=== PATIENT | male | born 1990 | race Caucasian/White ===

== ENCOUNTER 2016-11-09 02:50 | Inpatient (IN) | payer BC ==
[~2016-11-09] VITALS: Ht 180.3 cm; Wt 78.5 kg
--- NOTE | 2016-11-09 03:29 | EMERGENCY ROOM VISIT NOTE ---
History Report prepared by Rashaun: Sawyer Gtz Under the Supervision of: Dr. Janell Montez D.O. First contact with patient: 02:53 Chief Complaint: PALPITATIONS Stated Complaint: PALPITATIONS History of Present Illness The patient is a 25 year old male who presents to the Emergency Room with complaints of resolved palpitations that occurred earlier this morning. The patient described the feeling as a "flutter." He was also tachycardic and experienced heavy breathing. The patient denies chest pain, shortness of breath , leg pain or swelling. He also denies any fevers, cough, or other symptoms. The patient became anxious when he noticed the palpitations, and the anxiety exacerbated the sensation. The whole episode lasted about 15-20 minutes. The patient's symptoms completely resolved in the ambulance en route. The palpitations lasted approximately 15-20 minutes. The patient is tired but otherwise feels fine currently. The patient was preparing to get ready for a flight to [place] . He has flown before but does not like it. He felt normal when he went to bed before the onset of his palpitations. The patient has had this sensation in the past. He had an episode that resolved in 30 seconds in November. He also experienced the sensation approximately 6 years ago when he was running cross country. He had a halter monitor placed at that time and was diagnosed with pericarditis. He had chest pain with his pericarditis but has not had chest pain tonight. 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 He also had caffeine at approximately 1300. Source of History: patient Onset: earlier this morning Position: other (heart) Quality: other (palpitations) Timing: resolved Modifying Factors (Worsening): other (anxiety) Associated Symptoms: No SOB, No chest pain, No cough, No fevers Review of Systems See HPI for pertinent positives & negatives. A total of 10 systems reviewed and were otherwise negative. Past Medical & Surgical Medical Problems: (1) Pericarditis (2) Rhabdomyolysis (3) SOB (shortness of breath) Family History No pertinent family history Social History Alcohol Use: occasionally Housing Status: lives alone Occupation Status: employed Current/Historical Medications No Active Prescriptions or Reported Meds Allergies Coded Allergies: No Known Allergies (Unverified , 11/09/16) Physical Exam Vital Signs Date Time Temp Pulse Resp B/P Pulse Ox O2 Delivery O2 Flow Rate FiO2 11/09/16 04:37 115 18 137/92 97 Room Air 11/09/16 03:02 110 11/09/16 02:59 36.6 113 16 139/83 97 Room Air 11/09/16 02:59 97 Room Air 11/09/16 02:59 97 Room Air Physical Exam HEENT: Head - normocephalic and atraumatic Pupils are equal, round, and reactive to light. Extraocular eye muscles are intact, and sclera are anicteric. Nose - moist nasal mucosa without discharge. Mouth - moist buccal mucosa. Oropharynx is nonerythematous and there is no tonsillar exudate or edema noted. Neck: Supple; no JVD, nuchal rigidity, cervical lymphadenopathy, or auscultated bruits. Heart: Tachycardic, regular rhythm. There is a normal S1 and S2 with no murmurs , clicks, or gallops appreciated. Lungs: Clear to auscultation bilaterally with no wheezes, rales, or rhonchi. Abdomen: Soft, completely nontender, nondistended, with good bowel sounds. There are no palpable pulsatile masses or hepatosplenomegaly. There is no guarding, rigidity, or rebound noted. Extremities: No evidence of cyanosis, clubbing, or edema. There are easily palpable peripheral pulses. Skin: warm and dry with good turgor and no rashes. Medical Decision & Procedures ER Provider Diagnostic Interpretation: X-ray results as stated below per interpretation by me. CHEST X-RAY: No cardiomegaly. No pulmonary infiltrates. No pneumothorax. Laboratory Results Test 11/09/16 03:10 RDW Standard Deviation 36.3 fL (36.4-46.3) RDW Coefficient of Variation 12.1 % (11.5-14.5) Mean Platelet Volume 9.9 fL (7.4-10.4) Activated Partial Thromboplast Time 24.5 SECONDS (21.0-31.0) Partial Thromboplastin Ratio 0.9 D-Dimer < 190 ug/L FEU (0-500) Direct Bilirubin 0.2 mg/dl (0-0.2) Creatine Kinase MB 22.0 ng/ml (0.5-3.6) Creatine Kinase MB Ratio (0-3.0) Thyroid Stimulating Hormone (TSH) 3.670 uIu/ml (0.300-4.500) Laboratory results per my review. Medications Administered Medications (Trade) Dose Ordered Sig/Viviana Route Start Time Stop Time Status Last Admin Dose Admin Aspirin 324 mg 324 mg NOW STAT PO 11/09/16 04:43 11/09/16 04:44 DC 11/09/16 04:51 324 MG Lactated Ringer's (Lr 1000ml) 1,000 ml @ 500 mls/hr Q2H STAT IV 11/09/16 04:43 11/09/16 06:42 DC 11/09/16 05:06 500 MLS/HR ECG Indication: palpitations Rate (beats per minute): 113 Rhythm: sinus tachycardia Findings: no acute ischemic change, no ectopy Comparison ECG Date: no prior available ED Course 0310: Past medical records reviewed. The patient was evaluated in room A3. A complete history and physical exam was performed. He twelve-lead EKG was obtained. An IV lock was initiated and labs were drawn as above. 0430: Discussed the findings with the patient. 0435: Discussed the case with Dr. Morgan, [facility] Hospitalist. The patient will be evaluated. 0545: During hospitalist evaluation, the patient said he has had diffuse muscle pain after starting a new work regimen. A total CK was ordered at that time and revealed a CPK greater than 100,000. Medical Decision The patient is a 25 year old male who presents to the ED with palpitations. Differential diagnosis includes dysrhythmia, hyperthyroidism, pericarditis, anxiety. Laboratory interpretation: Troponin 0.05, normal creatinine, glucose 111, normal TSH, normal white count, stable H&H This is a 25-year-old male patient presents to the emergency department with a sudden onset of palpitations. The patient thought this may be secondary to anxiety but the symptoms persisted. His had a previous episode of pericarditis that was related to a viral illness. At that time, he had significant chest pain. The patient has no pain at this time. EKG was unremarkable. The patient has an elevated troponin. After further evaluation by the hospitalist, the patient described significant physical activity with diffuse body aches. It seems that his total CPK was greater than 100,000. The patient will be treated with IV saline solution for rhabdomyolysis. This may explain why the patient's troponin was elevated. I discussed the case at length with the [facility] Hospitalist and they will evaluate for further management. Consults Time Called: 429 Consulting Physician: Dr. Morgan [facility] Returned Call: [phone]: [facility] The patient will be evaluated. Impression Primary Impression: Palpitations Additional Impressions: Rhabdomyolysis, Elevated troponin Scribe Attestation The scribe's documentation has been prepared under my direction and personally reviewed by me in its entirety. I confirm that the note above accurately reflects all work, treatment, procedures, and medical decision making performed by me. Departure Information Dispostion Being Evaluated By Hospitalist Prescriptions No Active Prescriptions or Reported Meds Referrals No Doctor, Assigned (PCP) Patient Instructions A Signature Page, My [facility]
[2016-11-09 03:47] LABS: HEMATOCRIT 42.1 % (42-52); MEAN CORPUSCULAR HEMOGLOBIN 29.8 pg (25-34); MEAN CORPUSCULAR HGB CONC 35.9 g/dl (32-36); MEAN PLATELET VOLUME 9.9 fL (7.4-10.4); PLATELET COUNT 205 K/uL (130-400); RED BLOOD COUNT 5.07 M/uL (4.7-6.1); WHITE BLOOD COUNT 6.99 K/uL (4.8-10.8)
[2016-11-09 03:54] LABS: ALT/SGPT 282 U/L (12-78); BLOOD UREA NITROGEN 10 mg/dl (7-18); BUN/CREATININE RATIO 12.1 (10-20); CALCIUM 8.6 mg/dl (8.5-10.1); CARBON DIOXIDE 29 mmol/L (21-32); CHLORIDE 105 mmol/L (98-107); CREATININE 0.85 mg/dl (0.60-1.40); GLUCOSE 111 mg/dl (70-99); POTASSIUM 3.6 mmol/L (3.5-5.1); SODIUM 144 mmol/L (136-145)
[2016-11-09 04:25] LABS: ALKALINE PHOSPHATASE 40 U/L (45-117); AST/SGOT 1182 U/L (15-37)
[2016-11-09] MEDS ORDERED: LACTATED RINGER'S 1000ML 1,000 ML IV STA (04:43)
[2016-11-09] MEDS ORDERED: ASPIRIN 81 MG CHEW PO STA (04:43)
[2016-11-09 05:08] LABS: PARTIAL THROMBOPLASTIN RATIO 0.9
[2016-11-09 05:30] VITALS: Ht 180.3 cm; Wt 78.5 kg
[2016-11-09] MEDS ORDERED: KETOROLAC TROMETHAMINE 30 MG/ML VIAL IV PRN (05:45)
[2016-11-09] MEDS ORDERED: NITROGLYCERIN 0.4 MG SL PER TAB CHARGE SL PRN (05:45)
[2016-11-09] MEDS ORDERED: MoRPHine SULFATE 4 MG/ML 1 ML CARP\\VIAL IV PRN (05:45)
[2016-11-09] MEDS ORDERED: TRAMADOL HCL 50 MG TAB PO PRN (05:45)
[2016-11-09] MEDS ORDERED: ONDANSETRON INJ 2 MG/ML 2 ML VIAL IV PRN (05:45)
[2016-11-09] MEDS ORDERED: IBUPROFEN 200 MG TAB PO PRN (05:45)
[2016-11-09] MEDS ORDERED: LORAZEPAM 2 MG/ML 1 ML VIAL IV PRN (05:45)
[2016-11-09] MEDS ORDERED: ACETAMINOPHEN 325 MG TAB PO PRN (05:45)
[2016-11-09] MEDS ORDERED: hydrOXYzine HCL 10 MG TAB PO PRN (05:45)
[2016-11-09] MEDS ORDERED: LACTATED RINGER'S 1000ML 1,000 ML IV SCH ×2 (05:45→08:00)
[2016-11-09] MEDS ORDERED: IV FLUIDS COMPLETED PRN (06:15)
--- NOTE | 2016-11-09 06:16 | HISTORY & PHYSICAL EXAMINATION ---
DATE OF ADMISSION: 11/09/2016 PRIMARY CARE PHYSICIAN: None. CHIEF COMPLAINT: Palpitations. Hx obtained from px and records. HISTORY OF PRESENT ILLNESS: Medical history significant for pericarditis, occ tobacco abuse. Four years ago, patient confined at [facility] for left-sided chest pain worse when lying on his L side with palpitations. Diagnosis was pericarditis. Possibly secondary to cross track training as per px. This week patient decided to go back to working out. He thinks his routine more stressful than he could handle, sore all over, unable to get up from bed. Taking OTC ibuprofen. Patient was in bed early this morning reading about flight disasters (as he was about to travel to the [facility] next week) when he developed palpitations. "fluttering sensation" He felt it was a little hard to breathe. px attributed sx to anxiety. Denies chest pain, Admits to alcohol intake last night, nothing more than usual. Usual 2 coffee beverages a day. Patient brought to the Emergency Room. Noted to be in sinus tachycardia. MEDICAL HISTORY: As above. SURGERIES: None. HOME MEDICATIONS: OTC Ibuprofen ALLERGIES: No known drug allergies. FAMILY HISTORY: Hypertension. PERSONAL AND SOCIAL HISTORY: "social smoking" , occasional alcoholic beverage intake (3 times a week) Software work. REVIEW OF SYSTEMS: As per HPI. All other ROS negative. PHYSICAL EXAMINATION: VITAL SIGNS: Blood pressure was noted to be 139/93, pulse rate 115 RR 20 T 37 O2 97 on room air. GENERAL: Noted to be slightly anxious, no respiratory distress. SKIN: Normal color. HEENT: [place] palpebral conjunctivae. Dry mucosa. NECK: No JVD. Supple. CHEST: Clear to auscultation. HEART: Tachycardic. ABDOMEN: Soft. EXTREMITIES: No edema. No tenderness. NEUROLOGIC: No gross focality. LABS: Hemoglobin was noted to be 15.1, hematocrit 42, white count 6.99, platelets 205. Sodium 140, potassium 3.6, chloride 105, CO2 of 29, BUN 10, creatinine 0.8, glucose 111. AST 182, ALT 282. CK was greater than 100,000 and troponin was 0.05. D-Dimer was normal. EKG sinus tachycardia. ASSESSMENT: 1. Sinus tachycardia multifactorial : muscle pain 2 to rhabdomyolysis secondary to intense workout routine mild clinical dehydration anxiety ? alcohol consumption 2. troponinemia 2 to tachycardia, rhabdo 3. history of pericarditis as per px 4. occ tobacco abuse PLAN: PCU IV fluids. baseline CPK Follow CPK. Follow troponin. 2-D echo RE troponinemia, palpitations anxiolytic prn px counselled to avoid smoking DVT prophylaxis, SCDs. Full code. MTDD
[2016-11-09] MEDS ORDERED: SODIUM CHLORIDE 0.9% 1000ML 1,000 ML IV ONE (07:00)
[2016-11-09 07:07] LABS: URINE APPEARANCE CLEAR (CLEAR); URINE BILIRUBIN NEG (NEG); URINE COLOR YELLOW; URINE NITRITE NEG (NEG); URINE PH 7.5 (4.5-7.5); URINE SPECIFIC GRAVITY 1.003 (1.000-1.030); UROBILINOGEN NEG (NEG); ZZUR CULT IF INDIC CLEAN CATCH NO
[2016-11-09 07:13] LABS: MANUAL MICROSCOPIC REQUIRED? NO; REVIEW REQ? NO
[2016-11-09 07:48] LABS: BENZODIAZEPINE, URINE NEG (NEG); COCAINE,URINE NEG (NEG); PHENCYCLIDINE, URINE NEG (NEG)
--- NOTE | 2016-11-09 08:16 | DIAGNOSTIC IMAGING REPORT ---
CHEST 2 VIEWS ROUTINE CLINICAL HISTORY: palpitations TACHYCARDIA COMPARISON STUDY: No previous studies for comparison. FINDINGS: The cardiac and mediastinal contours are normal. There is no evidence of focal pulmonary consolidation. There is no evidence of failure. No pleural effusions are visualized.[ IMPRESSION: No active disease in the chest. Electronically signed by: Jensen Valdes M.D. 11/09/2016 8:14 AM
[2016-11-09 08:38] LABS: VEN BLD GAS O2 SATURATION 80.7 %; VEN BLOOD GAS BASE EXCESS 2.3 mmol/L
[2016-11-09 09:01] LABS: BLOOD UREA NITROGEN 12 mg/dl (7-18); CALCIUM 8.2 mg/dl (8.5-10.1); CARBON DIOXIDE 27 mmol/L (21-32); CHLORIDE 109 mmol/L (98-107); CREATININE 0.73 mg/dl (0.60-1.40); GLUCOSE 86 mg/dl (70-99); POTASSIUM 4.3 mmol/L (3.5-5.1); SODIUM 145 mmol/L (136-145)
[2016-11-09 09:32] LABS: PHOSPHORUS 4.9 mg/dl (2.5-4.9)
[2016-11-09 11:00] VITALS: BP 122/72; PULSE 78; TEMP 37; O2SAT 99
[2016-11-09] MEDS: SODIUM CHLORIDE 0.9% 1000ML 1,000 ML IV SCH ×7 (11:48→22:15)
[2016-11-09 12:00] VITALS: O2SAT 99
--- NOTE | 2016-11-09 12:21 | ECHOCARDIOGRAM REPORT ---
*NOTICE TO RECEIVING CONSTITUTION PARTY AGENCY This information is strictly Confidential and protected under [place] law. [place] law prohibits you from making any further disclosure of this information unless further disclosure is expressly permitted by the written consent of the person to whom it pertains or is authorized by law. A general authorization for the release of medical or other information is not sufficient for this purpose. Hospital accepts no responsibility if the information is made available to any other person, INCLUDING THE PATIENT. Interpretation Summary * Name: STEFANIE NGUYEN Study Date: 11/09/2016 11:06 AM BP: 127/87 mmHg * Patient Location: [facility]\S\N289\S\2 HR: 85 * : 1990 (M/d/yyyy) Gender: Male Height: 71 in * Age: 25 yrs Ethnicity: CA Weight: 160 lb * Ordering Physician: Tad Mrogan * Referring Physician: Self, Referred * Performed By: Tad Vo RDCS * * Reason For Study: Palpitations * BSA: 1.9 m2 * -- Conclusions -- * Normal LV chamber size and wall thickness. * Normal LV systolic function, EF 60-65%. * No segmental left ventricular wall motion abnormalities are noted. * Normal diastolic function. * No significant valvular pathology. Procedure Details * A complete two-dimensional transthoracic echocardiogram was performed (2D, M-mode, Doppler and color flow Doppler). * The study was technically adequate. Left Ventricle * The left ventricle is normal in size. * There is normal left ventricular wall thickness. * Left ventricular systolic function is normal. * No segmental left ventricular wall motion abnormalities are noted. * Ejection Fraction = 60-65%. * The left ventricular wall motion is normal. Right Ventricle * The right ventricular cavity size is normal (basal dimension <4.2 cm in right ventricular apical 4-chamber view). * The right ventricular systolic function is normal as assessed by tricuspid annular plane systolic excursion (TAPSE) (normal >1.5 cm). Atria * The left atrial size is normal. * Right atrial size is normal. * No ASD detected; PFO is not assessed. Mitral Valve * The mitral valve is normal in structure and function. Tricuspid Valve * The tricuspid valve is normal in structure and function. Aortic Valve * The aortic valve is normal in structure and function. Pulmonic Valve * The pulmonary valve is not well seen, but the Doppler examination is normal without significant regurgitation or stenosis. Great Vessels * The aortic root is normal size. Pericardium/Pleural * There is no pericardial effusion. Left Ventricular Diastolic Function * Pulse wave TDI of the anterior and posterior mitral annulas demonstrates normal LV relaxation MMode 2D Measurements and Calculations IVSd 1.1 cm IVSs 1.5 cm LVIDd 4.7 cm LVIDs 3.1 cm LVPWd 0.99 cm LVPWs 1.4 cm IVS/LVPW 1.1 FS 34.4 % EDV(Teich) 102.7 ml ESV(Teich) 37.6 ml EF(Teich) 63.4 % EDV(cubed) 104.2 ml ESV(cubed) 29.4 ml EF(cubed) 71.8 % % IVS thick 41.2 % % LVPW thick 45.8 % LV mass(C)d 171.9 grams LV mass(C)dI 89.6 grams/m\S\2 LV mass(C)s 160.0 grams LV mass(C)sI 83.4 grams/m\S\2 SV(Teich) 65.1 ml SI(Teich) 34.0 ml/m\S\2 SV(cubed) 74.8 ml SI(cubed) 39.0 ml/m\S\2 EPSS 0.56 cm Ao root diam 3.1 cm Ao root area 7.6 cm\S\2 ACS 1.8 cm LA dimension 2.9 cm asc Aorta Diam 2.6 cm LA/Ao 0.93 LVAd ap4 26.6 cm\S\2 LVLd ap4 8.3 cm EDV(MOD-sp4) 71.0 ml LVAs ap4 15.1 cm\S\2 LVLs ap4 6.8 cm ESV(MOD-sp4) 28.0 ml EF(MOD-sp4) 60.6 % LVAd ap2 29.3 cm\S\2 LVLd ap2 8.9 cm EDV(MOD-sp2) 83.0 ml LVAs ap2 15.7 cm\S\2 LVLs ap2 7.3 cm ESV(MOD-sp2) 29.0 ml EF(MOD-sp2) 65.1 % SV(MOD-sp4) 43.0 ml SI(MOD-sp4) 22.4 ml/m\S\2 SV(MOD-sp2) 54.0 ml SI(MOD-sp2) 28.2 ml/m\S\2 Doppler Measurements and Calculations MV E max angie 83.9 cm/sec MV A max angie 40.0 cm/sec MV E/A 2.1 MV dec time 0.18 sec Ao V2 max 114.0 cm/sec Ao max PG 5.2 mmHg Ao max PG (full) 0.74 mmHg LV V1 max PG 4.5 mmHg LV V1 max 105.6 cm/sec PA V2 max 88.6 cm/sec PA max PG 3.1 mmHg PI end-d angie 107.7 cm/sec TR max angie 215.7 cm/sec
[2016-11-09 14:01] VITALS: BP 131/97; PULSE 82; TEMP 36.7; O2SAT 97
[2016-11-09 15:15] VITALS: BP 122/70; PULSE 78; TEMP 36.9; O2SAT 97
[2016-11-09 19:19] VITALS: BP 120/70; PULSE 77; TEMP 36.6; O2SAT 98
[2016-11-09 19:54] LABS: BUN/CREATININE RATIO 10.1 (10-20); CALCIUM 7.6 mg/dl (8.5-10.1); CREATININE 0.78 mg/dl (0.60-1.40); POTASSIUM 3.8 mmol/L (3.5-5.1)
[2016-11-09 20:22] LABS: PHOSPHORUS 3.1 mg/dl (2.5-4.9)
[2016-11-09 23:30] VITALS: BP 114/65; PULSE 76; TEMP 36.1; O2SAT 97
[2016-11-10] VITALS (9 sets, daily range): BP systolic 100–131; BP diastolic 63–82; PULSE 69–84; TEMP 36.3–36.8; O2SAT 96–98
[2016-11-10] MEDS: SODIUM CHLORIDE 0.9% 1000ML 1,000 ML IV SCH ×8 (00:15→14:12)
[2016-11-10 07:40] LABS: BASO % 0.2 %; BASO ABS # 0.01 K/uL (0-0.2); COMPLETE YES; EOS % 4.6 %; HEMATOCRIT 34.9 % (42-52); IG% 0.2 %; LYMPH % 44.7 %; LYMPH ABS # 2.23 K/uL (1.2-3.4); MEAN CELL VOLUME 84.7 fL (80-100); MEAN CORPUSCULAR HEMOGLOBIN 29.4 pg (25-34); MEAN CORPUSCULAR HGB CONC 34.7 g/dl (32-36); MEAN PLATELET VOLUME 10.2 fL (7.4-10.4); MONO % 7.8 %; NEUT % 42.5 %; PLATELET COUNT 150 K/uL (130-400); RED BLOOD COUNT 4.12 M/uL (4.7-6.1); WHITE BLOOD COUNT 4.99 K/uL (4.8-10.8)
[2016-11-10 08:02] LABS: ALT/SGPT 206 U/L (12-78); BLOOD UREA NITROGEN 8 mg/dl (7-18); BUN/CREATININE RATIO 13.6 (10-20); CALCIUM 7.6 mg/dl (8.5-10.1); CARBON DIOXIDE 27 mmol/L (21-32); CHLORIDE 112 mmol/L (98-107); CREATININE 0.59 mg/dl (0.60-1.40); GLUCOSE 91 mg/dl (70-99); MAGNESIUM 1.7 mg/dl (1.8-2.4); POTASSIUM 4.3 mmol/L (3.5-5.1); SODIUM 145 mmol/L (136-145); URIC ACID 3.5 mg/dl (2.6-7.2)
[2016-11-10 09:01] LABS: ALB/GLOB RATIO 1.6 (0.9-2); ALKALINE PHOSPHATASE 25 U/L (45-117); AST/SGOT 640 U/L (15-37); PHOSPHORUS 3.6 mg/dl (2.5-4.9)
[2016-11-10] MEDS: SODIUM CHLORIDE 0.9% IV SCH ×2 (16:42→20:29)
[2016-11-10] MEDS: MAG SULFATE IV SCH ×2 (16:42→20:29)
[2016-11-10 20:31] LABS: BUN/CREATININE RATIO 10.5 (10-20); CALCIUM 8.3 mg/dl (8.5-10.1); CREATININE 0.81 mg/dl (0.60-1.40); MAGNESIUM 2.1 mg/dl (1.8-2.4)
--- NOTE | 2016-11-10 20:51 | Progress Note ---
Medicine Progress Note Date & Time of Visit: Nov 10, 2016 at 15:30 . Subjective Myalgias improved. Good diuresis with clear urine. . Objective Last 8 Hrs Date Time Temp Pulse Resp B/P Pulse Ox O2 Delivery O2 Flow Rate FiO2 11/10/16 20:00 98 Room Air 11/10/16 19:06 36.8 75 18 130/82 98 Room Air 11/10/16 16:00 97 Room Air 11/10/16 15:14 36.8 84 18 129/77 97 Room Air Physical Exam: General- no distress Lungs- clear Heart- regular Abdomen- soft, nontender Extremities- no pretibial edema or calf tenderness Neuro- alert . Laboratory Results: Last 24 Hours Test 11/10/16 06:48 11/10/16 20:05 White Blood Count 4.99 K/uL Red Blood Count 4.12 M/uL Hemoglobin 12.1 g/dL Hematocrit 34.9 % Mean Corpuscular Volume 84.7 fL Mean Corpuscular Hemoglobin 29.4 pg Mean Corpuscular Hemoglobin Concent 34.7 g/dl Platelet Count 150 K/uL Mean Platelet Volume 10.2 fL Neutrophils (%) (Auto) 42.5 % Lymphocytes (%) (Auto) 44.7 % Monocytes (%) (Auto) 7.8 % Eosinophils (%) (Auto) 4.6 % Basophils (%) (Auto) 0.2 % Neutrophils # (Auto) 2.12 K/uL Lymphocytes # (Auto) 2.23 K/uL Monocytes # (Auto) 0.39 K/uL Eosinophils # (Auto) 0.23 K/uL Basophils # (Auto) 0.01 K/uL RDW Standard Deviation 37.6 fL RDW Coefficient of Variation 12.2 % Immature Granulocyte % (Auto) 0.2 % Immature Granulocyte # (Auto) 0.01 K/uL Sodium Level 145 mmol/L 145 mmol/L Potassium Level 4.3 mmol/L 4.0 mmol/L Chloride Level 112 mmol/L 109 mmol/L Carbon Dioxide Level 27 mmol/L 27 mmol/L Anion Gap 6.0 mmol/L 9.0 mmol/L Blood Urea Nitrogen 8 mg/dl 9 mg/dl Creatinine 0.59 mg/dl 0.81 mg/dl Est Creatinine Clear Calc Drug Dose 207.3 ml/min 151.0 ml/min Estimated GFR () > 150.0 145.2 Estimated GFR (Non- 142.7 125.3 BUN/Creatinine Ratio 13.6 10.5 Random Glucose 91 mg/dl 90 mg/dl Uric Acid 3.5 mg/dl Calcium Level 7.6 mg/dl 8.3 mg/dl Phosphorus Level 3.6 mg/dl Magnesium Level 1.7 mg/dl 2.1 mg/dl Total Bilirubin 0.8 mg/dl Aspartate Amino Transf (AST/SGOT) 640 U/L Alanine Aminotransferase (ALT/SGPT) 206 U/L Alkaline Phosphatase 25 U/L Total Protein 4.7 gm/dl Albumin 2.9 gm/dl Globulin 1.8 gm/dl Albumin/Globulin Ratio 1.6 Assessment & Plan RHABDOMYOLYSIS Markedly elevated CPK at time of presentation. Rhabdomyolysis most likely secondary to intense weightlifting. Received IV fluids. Serum creatinine stable. HYPOMAGNESEMIA Repletion. VTE PROPHYLAXIS SCD's. Ambulate. DISPOSITION Expected discharge to home. Will need arrangements for Primary Care. . Current Inpatient Medications: Current Inpatient Medications Medications (Trade) Dose Ordered Sig/Viviana Route Start Time Stop Time Status Last Admin Dose Admin Acetaminophen (Tylenol Tab) 325 mg Q6H PRN PO 11/09/16 05:45 12/09/16 05:44 Nitroglycerin (Nitrostat Tab) 0.4 mg UD PRN SL 11/09/16 05:45 12/09/16 05:44 Tramadol HCl (Ultram Tab) 25 mg Q6H PRN PO 11/09/16 05:45 12/09/16 05:44 Ibuprofen (Advil Tab) 400 mg Q6H PRN PO 11/09/16 05:45 12/09/16 05:44 Ondansetron HCl (Zofran Inj) 4 mg Q6H PRN IV 11/09/16 05:45 12/09/16 05:44 Lorazepam (Ativan Inj) 0.5 mg Q4H PRN IV 11/09/16 05:45 12/09/16 05:44 Morphine Sulfate (MoRPHine SULFATE INJ) 4 mg Q6H PRN IV 11/09/16 05:45 11/23/16 05:44 Hydroxyzine HCl (Vistaril Tab) 10 mg Q6H PRN PO 11/09/16 05:45 12/09/16 05:44 Miscellaneous 1 ea 1 ea PRN PRN N/A 11/09/16 06:15 11/09/17 06:14 Magnesium Sulfate/ Sodium Chloride (Mag Sulfate 50% Inj/Nss 1000ml) 1,002 ml @ 250 mls/hr Q4H1M IV 11/10/16 15:45 12/10/16 15:44 11/10/16 20:29 250 MLS/HR
[2016-11-11] VITALS (9 sets, daily range): BP systolic 108–127; BP diastolic 61–79; PULSE 57–83; TEMP 36.3–37.1; O2SAT 95–98
[2016-11-11] MEDS: SODIUM CHLORIDE 0.9% IV SCH ×6 (00:47→20:08)
[2016-11-11] MEDS: MAG SULFATE IV SCH ×6 (00:47→20:08)
[2016-11-11 05:42] LABS: ALT/SGPT 205 U/L (12-78); AST/SGOT 529 U/L (15-37); BLOOD UREA NITROGEN 7 mg/dl (7-18); BUN/CREATININE RATIO 9.7 (10-20); CALCIUM 8.1 mg/dl (8.5-10.1); CARBON DIOXIDE 28 mmol/L (21-32); CHLORIDE 109 mmol/L (98-107); CREATININE 0.67 mg/dl (0.60-1.40); GLUCOSE 90 mg/dl (70-99); POTASSIUM 3.8 mmol/L (3.5-5.1); SODIUM 145 mmol/L (136-145)
[2016-11-11 06:08] LABS: ALB/GLOB RATIO 1.5 (0.9-2); ALKALINE PHOSPHATASE 30 U/L (45-117)
[2016-11-11 06:40] LABS: MAGNESIUM 2.3 mg/dl (1.8-2.4)
--- NOTE | 2016-11-11 19:35 | Progress Note ---
Medicine Progress Note Date & Time of Visit: Nov 11, 2016 at 11:20 . Subjective Doing well. Urine pale. No SOB. . Objective Last 8 Hrs Date Time Temp Pulse Resp B/P Pulse Ox O2 Delivery O2 Flow Rate FiO2 11/11/16 19:04 37.1 72 20 125/73 98 Room Air 11/11/16 15:20 36.9 83 20 113/73 95 Room Air 11/11/16 12:21 36.7 62 18 125/72 98 11/11/16 12:05 Room Air Physical Exam: General- no distress Lungs- clear Heart- regular Abdomen- soft, nontender Extremities- no pretibial edema or calf tenderness Neuro- alert . Laboratory Results: Last 24 Hours Test 11/10/16 20:05 11/11/16 04:57 Sodium Level 145 mmol/L 145 mmol/L Potassium Level 4.0 mmol/L 3.8 mmol/L Chloride Level 109 mmol/L 109 mmol/L Carbon Dioxide Level 27 mmol/L 28 mmol/L Anion Gap 9.0 mmol/L 8.0 mmol/L Blood Urea Nitrogen 9 mg/dl 7 mg/dl Creatinine 0.81 mg/dl 0.67 mg/dl Est Creatinine Clear Calc Drug Dose 151.0 ml/min 182.5 ml/min Estimated GFR () 145.2 > 150.0 Estimated GFR (Non- 125.3 135.4 BUN/Creatinine Ratio 10.5 9.7 Random Glucose 90 mg/dl 90 mg/dl Calcium Level 8.3 mg/dl 8.1 mg/dl Magnesium Level 2.1 mg/dl 2.3 mg/dl Total Creatine Kinase 86140 U/L 34223 U/L Total Bilirubin 0.6 mg/dl Aspartate Amino Transf (AST/SGOT) 529 U/L Alanine Aminotransferase (ALT/SGPT) 205 U/L Alkaline Phosphatase 30 U/L Total Protein 5.2 gm/dl Albumin 3.1 gm/dl Globulin 2.1 gm/dl Albumin/Globulin Ratio 1.5 Assessment & Plan RHABDOMYOLYSIS Markedly elevated CPK at time of presentation - > 100,000. Rhabdomyolysis most likely secondary to intense weightlifting. No anabolic steroids. Normal electrolytes and TSH. Received IV fluids. CPK > 100,000 --> --> 23,604. Serum creatinine stable. Continue IV fluids. HYPOMAGNESEMIA Mg as low as1.7. Receiving IV repletion. Follow. VTE PROPHYLAXIS SCD's. Ambulate. DISPOSITION Expected discharge to home. Will need arrangements for Primary Care. . Current Inpatient Medications: Current Inpatient Medications Medications (Trade) Dose Ordered Sig/Viviana Route Start Time Stop Time Status Last Admin Dose Admin Acetaminophen (Tylenol Tab) 325 mg Q6H PRN PO 11/09/16 05:45 12/09/16 05:44 Nitroglycerin (Nitrostat Tab) 0.4 mg UD PRN SL 11/09/16 05:45 12/09/16 05:44 Tramadol HCl (Ultram Tab) 25 mg Q6H PRN PO 11/09/16 05:45 12/09/16 05:44 Ibuprofen (Advil Tab) 400 mg Q6H PRN PO 11/09/16 05:45 12/09/16 05:44 Ondansetron HCl (Zofran Inj) 4 mg Q6H PRN IV 11/09/16 05:45 12/09/16 05:44 Lorazepam (Ativan Inj) 0.5 mg Q4H PRN IV 11/09/16 05:45 12/09/16 05:44 Morphine Sulfate (MoRPHine SULFATE INJ) 4 mg Q6H PRN IV 11/09/16 05:45 11/23/16 05:44 Hydroxyzine HCl (Vistaril Tab) 10 mg Q6H PRN PO 11/09/16 05:45 12/09/16 05:44 Miscellaneous 1 ea 1 ea PRN PRN N/A 11/09/16 06:15 11/09/17 06:14 Magnesium Sulfate/ Sodium Chloride (Mag Sulfate 50% Inj/Nss 1000ml) 1,002 ml @ 250 mls/hr Q4H1M IV 11/10/16 15:45 12/10/16 15:44 11/11/16 16:09 250 MLS/HR
[2016-11-12] MEDS: SODIUM CHLORIDE 0.9% IV SCH ×5 (00:03→16:12)
[2016-11-12] MEDS: MAG SULFATE IV SCH ×5 (00:03→16:12)
[2016-11-12 06:18] LABS: BUN/CREATININE RATIO 11.8 (10-20); CALCIUM 8.4 mg/dl (8.5-10.1); CREATININE 0.75 mg/dl (0.60-1.40); MAGNESIUM 2.3 mg/dl (1.8-2.4); POTASSIUM 3.6 mmol/L (3.5-5.1)
[2016-11-12 06:21] LABS: ALB/GLOB RATIO 1.5 (0.9-2)
[2016-11-12 07:23] VITALS: BP 117/71; PULSE 57; TEMP 36.7; O2SAT 97
[2016-11-12 15:44] VITALS: BP 132/86; PULSE 79; TEMP 36.6; O2SAT 96
[2016-11-12 16:00] VITALS: O2SAT 96
--- NOTE | 2016-11-12 19:25 | Progress Note ---
Medicine Progress Note Date & Time of Visit: Nov 12, 2016 at 19:25 . Subjective Doing well. Myalgias resolved. Good urine output. Urine clear. . Objective Last 8 Hrs Date Time Temp Pulse Resp B/P Pulse Ox O2 Delivery O2 Flow Rate FiO2 11/12/16 16:00 96 Room Air 11/12/16 15:44 36.6 79 18 132/86 96 Room Air Physical Exam: General- no distress Lungs- clear Heart- regular Abdomen- soft, nontender Extremities- no pretibial edema or calf tenderness Neuro- alert . Laboratory Results: Last 24 Hours Test 11/12/16 04:55 Sodium Level 144 mmol/L Potassium Level 3.6 mmol/L Chloride Level 108 mmol/L Carbon Dioxide Level 30 mmol/L Anion Gap 6.0 mmol/L Blood Urea Nitrogen 9 mg/dl Creatinine 0.75 mg/dl Est Creatinine Clear Calc Drug Dose 163.1 ml/min Estimated GFR () 149.9 Estimated GFR (Non- 129.3 BUN/Creatinine Ratio 11.8 Random Glucose 86 mg/dl Calcium Level 8.4 mg/dl Magnesium Level 2.3 mg/dl Total Bilirubin 1.0 mg/dl Aspartate Amino Transf (AST/SGOT) 385 U/L Alanine Aminotransferase (ALT/SGPT) 204 U/L Alkaline Phosphatase 36 U/L Total Creatine Kinase 37333 U/L Total Protein 5.9 gm/dl Albumin 3.5 gm/dl Globulin 2.4 gm/dl Albumin/Globulin Ratio 1.5 Assessment & Plan RHABDOMYOLYSIS Markedly elevated CPK at time of presentation - > 100,000. Rhabdomyolysis most likely secondary to intense weightlifting. No anabolic steroids. Normal electrolytes and TSH. Received IV fluids. CPK > 100,000 --> --> 11,043. Serum creatinine stable. Ideally, should continue IV fluids until CPK < 5000. However, patient opts to be discharged this evening due to important business trip previous scheduled. Possible risk of ATN discussed; he wishes to be discharged. Continue to push PO fluids- at least 4 L / day. Check repeat labs upon return from trip. Avoid extreme physical activity. Further evaluation if rhabdo recurs. HYPOMAGNESEMIA Mg as low as1.7. Received IV repletion. VTE PROPHYLAXIS SCD's. Ambulate. DISPOSITION Discharge to home. Patient advised to establish with Primary Care provider panelled by his insurance. . Current Inpatient Medications: Current Inpatient Medications Medications (Trade) Dose Ordered Sig/Viviana Route Start Time Stop Time Status Last Admin Dose Admin Acetaminophen (Tylenol Tab) 325 mg Q6H PRN PO 11/09/16 05:45 12/09/16 05:44 Nitroglycerin (Nitrostat Tab) 0.4 mg UD PRN SL 11/09/16 05:45 12/09/16 05:44 Tramadol HCl (Ultram Tab) 25 mg Q6H PRN PO 11/09/16 05:45 12/09/16 05:44 Ondansetron HCl (Zofran Inj) 4 mg Q6H PRN IV 11/09/16 05:45 12/09/16 05:44 Lorazepam (Ativan Inj) 0.5 mg Q4H PRN IV 11/09/16 05:45 12/09/16 05:44 Morphine Sulfate (MoRPHine SULFATE INJ) 4 mg Q6H PRN IV 11/09/16 05:45 11/23/16 05:44 Hydroxyzine HCl (Vistaril Tab) 10 mg Q6H PRN PO 11/09/16 05:45 12/09/16 05:44 Miscellaneous 1 ea 1 ea PRN PRN N/A 11/09/16 06:15 11/09/17 06:14 Magnesium Sulfate/ Sodium Chloride (Mag Sulfate 50% Inj/Nss 1000ml) 1,002 ml @ 250 mls/hr Q4H1M IV 11/10/16 15:45 12/10/16 15:44 11/12/16 16:12 250 MLS/HR
--- NOTE | 2016-11-12 19:34 | Discharge Instructions ---
Discharge Instructions Admission Reason for Admission: rhabdomyolysis (muscle strain with release of enzymes from muscle cells) . Discharge Discharge Diagnosis / Problem: rhabdomyolysis (muscle strain with release of enzymes from muscle cells) Discharge Goals Goal(s): Decrease discomfort, Improve function Activity Recommendations Activity Limitations: as noted below (no extreme weight lifting or other extremely strenous activities) . Instructions / Follow-Up Instructions / Follow-Up Drink plenty of fluids- at least 4 quarts a day. Alternate water and sports drinks. Please have labs checked at [facility] outpatient lab on Friday11/18/16. Lab hours are 7 a.m. to 7 p.m. Please establish with a primary care provider for your medical care. Seek medical attention if you have: * temperature above 101 * chest pain or trouble breathing * abdominal pain, nausea, vomiting * dark brown or red urine * severe muscle aches * any unanswered questions or concerns Call 911 if symptoms are severe. Call if you have any questions or problems. My cell # is [phone]. You can also reach a [facility] hospitalist on duty at [facility] 24 hours a day by calling [phone]. Please take good care of yourself. Joseph Sarmiento . Current Hospital Diet Patient's current hospital diet: Regular Diet Discharge Diet Recommended Diet: Regular Diet Pending Studies Studies pending at discharge: no Medical Emergencies . Who to Call and When: Medical Emergencies: If at any time you feel your situation is an emergency, please call 911 immediately. . Non-Emergent Contact Non-Emergency issues call your: Primary Care Provider, Hospital Doctor . . "Provider Documentation" section prepared by Joseph Sarmiento. VTE Core Measure Inpt VTE Proph given/why not?: SCD's
[2016-11-12 19:45] VITALS: BP 132/86; PULSE 79; TEMP 36.6; O2SAT 96
--- NOTE | 2016-11-13 05:46 | Discharge Summary ---
Discharge Summary Admission Date: Nov 09, 2016 at 05:37 Discharge Date: Nov 12, 2016 Discharge Disposition: Home Principal Diagnosis: rhabdomyolysis . Procedures: cardiac monitoring echo IV fluids . Pending Studies/Follow-Up: basic metabolic profile + CPK 11/18/16 . Medication Reconciliation Medication Profile: No Active Prescriptions or Reported Meds Admission Information HPI (per Admitting provider): Medical history significant for pericarditis, occ tobacco abuse. Four years ago, patient confined at [facility] for left-sided chest pain worse when lying on his L side with palpitations. Diagnosis was pericarditis. Possibly secondary to cross track training as per px. This week patient decided to go back to working out. He thinks his routine more stressful than he could handle, sore all over, unable to get up from bed. Taking OTC ibuprofen. Patient was in bed early this morning reading about flight disasters (as he was about to travel to the [facility] next week) when he developed palpitations. "fluttering sensation" He felt it was a little hard to breathe. px attributed sx to anxiety. Denies chest pain, Admits to alcohol intake last night, nothing more than usual. Usual 2 coffee beverages a day. Patient brought to the Emergency Room. Noted to be in sinus tachycardia. . Physical Exam (per Admitting): VITAL SIGNS: Blood pressure was noted to be 139/93, pulse rate 115 RR 20 T 37 O2 97 on room air. GENERAL: Noted to be slightly anxious, no respiratory distress. SKIN: Normal color. HEENT: [place] palpebral conjunctivae. Dry mucosa. NECK: No JVD. Supple. CHEST: Clear to auscultation. HEART: Tachycardic. ABDOMEN: Soft. EXTREMITIES: No edema. No tenderness. NEUROLOGIC: No gross focality. . Hospital Course RHABDOMYOLYSIS Markedly elevated CPK at time of presentation - > 100,000. Rhabdomyolysis most likely secondary to intense weightlifting. No anabolic steroids. Normal electrolytes and TSH. Received IV fluids. CPK > 100,000 --> --> 11,043. Serum creatinine stable @ 0.75 day of discharge Ideally, should continue IV fluids until CPK < 5000. However, patient opted to be discharged this evening due to important business trip previous scheduled. Possible risk of ATN discussed; he wished to be discharged. Continue to push PO fluids- at least 4 L / day. Check repeat labs upon return from trip. Avoid extreme physical activity. Further evaluation if rhabdo recurs. HYPOMAGNESEMIA Mg as low as1.7. Received IV repletion. ELEVATED SERUM TROPONIN Troponin 0.055, 0.296. Echo showed normal LV wall motion and function. Elevated troponin secondary to rhabdomyolysis. VTE PROPHYLAXIS SCD's. Ambulate. DISPOSITION Discharge to home. Patient advised to establish with Primary Care provider panelled by his insurance. . Total time spent on discharge = 35 min. This includes examination of the patient, discharge planning, medication reconciliation, and communication with other providers. . Discharge Instructions Admission Reason for Admission: rhabdomyolysis (muscle strain with release of enzymes from muscle cells) . Discharge Discharge Diagnosis / Problem: rhabdomyolysis (muscle strain with release of enzymes from muscle cells) Discharge Goals Goal(s): Decrease discomfort, Improve function Activity Recommendations Activity Limitations: as noted below (no extreme weight lifting or other extremely strenous activities) . Instructions / Follow-Up Instructions / Follow-Up Drink plenty of fluids- at least 4 quarts a day. Alternate water and sports drinks. Please have labs checked at [facility] outpatient lab on Friday11/18/16. Lab hours are 7 a.m. to 7 p.m. Please establish with a primary care provider for your medical care. Seek medical attention if you have: * temperature above 101 * chest pain or trouble breathing * abdominal pain, nausea, vomiting * dark brown or red urine * severe muscle aches * any unanswered questions or concerns Call 911 if symptoms are severe. Call if you have any questions or problems. My cell # is [phone]. You can also reach a [facility] hospitalist on duty at [facility] 24 hours a day by calling [phone]. Please take good care of yourself. Joseph Sarmiento . Current Hospital Diet Patient's current hospital diet: Regular Diet Discharge Diet Recommended Diet: Regular Diet Pending Studies Studies pending at discharge: no Medical Emergencies . Who to Call and When: Medical Emergencies: If at any time you feel your situation is an emergency, please call 911 immediately. . Non-Emergent Contact Non-Emergency issues call your: Primary Care Provider, Hospital Doctor . . "Provider Documentation" section prepared by Joseph Sarmiento. VTE Core Measure Inpt VTE Proph given/why not?: SCD's .
== END 2016-11-12 15:30 | disposition home or self-care (01) | DRG 558 ==
LOC: ENRESERVTM → ENRESERVDT → C.EDA 02:52 → C.EDINP 04:56 → OBSVTOIN 05:37 → C.MED 10:11 → C.MS2W 11-12 00:09
PROVIDERS: ADMIT Internal Medicine; ATTEND Hospitalist
DX: M62.82 Rhabdomyolysis (principal); X50.0XXA Overexertion from strenuous movement or load, initial encounter; Y93.B3 Activity, free weights; R00.0 Tachycardia, unspecified; E83.42 Hypomagnesemia; E86.0 Dehydration; R79.89 Other specified abnormal findings of blood chemistry; R00.2 Palpitations; F41.9 Anxiety disorder, unspecified; Z72.0 Tobacco use; Z86.79 Personal history of other diseases of the circulatory system